=== PATIENT | female | born 1965 | race American Indian/Alaskan Native ===

== ENCOUNTER 2017-11-03 18:07 | Emergency (ER) | payer MEDICAID ==
[2017-11-03 18:24] VITALS: TEMP 98.6
--- NOTE | 2017-11-03 18:35 | C.PDOC ---
History Of Present Illness 52 yo female w/PMHx of asthma come in for evaluation of Right sided sharp, spasmodic headache developed since yesterday. Pt sts, "its sharp, last 3 sec, shot to my Right eye". Otherwise, pt denies continuos headache, visual changes, focal deficits, neck pain, CVP, SOB, dyspnea, diaphoresis, palpitation, abd. pain, N/V, denies weakness, sensory or vascular deficits to B/L UEs and lEs. AT present time, pt is asymptomatic. Time Seen by Provider: 11/03/17 18:27 Chief Complaint (Nursing): Headache History Per: Patient History/Exam Limitations: no limitations Onset/Duration Of Symptoms: Days (1) Current Symptoms Are (Timing): Still Present Severity: Moderate Quality: Sharp Past Medical History Reviewed: Historical Data, Nursing Documentation, Vital Signs Vital Signs: Last Vital Signs Temp 98.6 F 11/03/17 18:20 Pulse 65 11/03/17 18:20 Resp 18 11/03/17 18:20 BP 141/69 11/03/17 18:20 Pulse Ox 97 11/03/17 18:50 - Medical History PMH: Asthma Family History: States: No Known Family Hx - Social History Hx Alcohol Use: Yes Hx Substance Use: No - Immunization History Hx Tetanus Toxoid Vaccination: No Hx Influenza Vaccination: Yes Review Of Systems Constitutional: Negative for: Fever, Chills Eyes: Negative for: Vision Change, Conjunctivae Inflammation, Eyelid Inflammation Cardiovascular: Negative for: Chest Pain Respiratory: Negative for: Shortness of Breath Gastrointestinal: Negative for: Nausea, Vomiting Musculoskeletal: Negative for: Neck Pain Neurological: Positive for: Headache. Negative for: Weakness, Numbness, Altered Mental Status, Dizziness Physical Exam - Physical Exam Appears: Well, Non-toxic, No Acute Distress Skin: Normal Color, Warm, Dry, No Rash, No Ecchymosis Head: Atraumatic, Normacephalic Eye(s): bilateral: PERRL, EOMI Ear(s): Bilateral: Normal Nose: No Flaring, No Discharge Oral Mucosa: Moist, No Drooling Throat: No Drooling Neck: Normal ROM, Trachea Midline, Supple Cardiovascular: Rhythm Regular, No Murmur, No JVD, Other ((-) caorit bruits B/L) Respiratory: No Decreased Breath Sounds, No Accessory Muscle Use, No Stridor, No Wheezing Gastrointestinal/Abdominal: Soft, No Tenderness, No Distention, No Guarding Back: No Vertebral Tenderness Extremity: Normal ROM, No Pedal Edema, No Deformity Neurological/Psych: Oriented x3, Normal Speech, Normal Motor, Normal Sensation, Normal Reflexes ED Course And Treatment O2 Sat by Pulse Oximetry: 97 (RA) Pulse Ox Interpretation: Normal - CT Scan/US CT head w/o contrast Other Rad Studies (CT/US): Radiology Report Reviewed CT/US Interpretation: EXAM: CT Head Without Intravenous Contrast. CLINICAL HISTORY: 52 years old, female; Pain; Headache; Headache not specified; Additional. info: Right side pain. TECHNIQUE: Axial computed tomography images of the head/brain without intravenous contrast. All CT scans at this facility use at least one of these dose optimization techniques: automated. exposure control; mA and/or kV adjustment per patient size (includes targeted exams where dose is. matched to clinical indication); or iterative reconstruction. Coronal and sagittal reformatted images. were created and reviewed. COMPARISON: No relevant prior studies available. FINDINGS: Brain: Unremarkable. No hemorrhage. No significant white matter disease. No edema. Ventricles: Unremarkable. No ventriculomegaly. Bones/joints: Unremarkable. No acute fracture. Soft tissues: Unremarkable. Sinuses: Unremarkable as visualized. No acute sinusitis. Mastoid air cells: Unremarkable as visualized. No mastoid effusion. IMPRESSION: Normal head/brain CT. Thank you for allowing us to participate in the care of your patient. Dictated and Authenticated by: Nixon Briggs MD. 11/03/2017 8:07 PM Eastern Time ([place] & [place]) Progress Note: On re-evaluation, pt remained asymptomatic, while in ED. Afebrile, hemodynamicaly stable. Neuorlogicaly intact. CT head results review - unremarcable. Pt has clinical findings c/w Right sided headache, nos r/o neuralgia. Pt advised and ref. to f/u with PMD, Neuorlogy in 1-2 dyas for re- eavluation, Carotid Dopple, MRI of brain as need. return to Ed if any worsening or new changes. Disposition Counseled Patient/Family Regarding: Studies Performed, Diagnosis, Need For Followup, Rx Given - Disposition Referrals: Timmy Baptiste MD [Staff Provider] - Disposition: HOME/ ROUTINE Disposition Time: 20:09 Condition: STABLE Additional Instructions: Follow up with PMD, Neurology in 2-3 days for re-evaluation. Consider carotid Dopple US, MRI of brain if symptoms persist. return to Ed if any worsening or new changes. Instructions: Headache, Adult (DC) Forms: [facility] (Sinhala) - Clinical Impression Clinical Impression: Headache
[2017-11-03 20:28] VITALS: BP 138/81; PULSE 78; RESP 16; O2SAT 98
--- NOTE | 2017-11-04 11:25 | CT ---
Date of service: 11/03/2017 PROCEDURE: CT HEAD WITHOUT CONTRAST. HISTORY: Right side pain COMPARISON: None available. TECHNIQUE: Axial computed tomography images were obtained through the head/brain without intravenous contrast. Radiation dose: Total exam DLP = 97.02 mGy-cm. This CT exam was performed using one or more of the following dose reduction techniques: Automated exposure control, adjustment of the mA and/or kV according to patient size, and/or use of iterative reconstruction technique. FINDINGS: HEMORRHAGE: No intracranial hemorrhage. BRAIN: Normal peña-white matter differentiation and density are appreciated throughout the cerebrum and cerebellum with the brainstem appearing unremarkable as well. There is no mass effect. There is no suspicious extra-axial fluid collection and the midline brain anatomy appears diffusely unremarkable. VENTRICLES: Unremarkable. No hydrocephalus. CALVARIUM: Unremarkable. PARANASAL SINUSES: Unremarkable as visualized. No significant inflammatory changes. MASTOID AIR CELLS: Unremarkable as visualized. No inflammatory changes. OTHER FINDINGS: None. IMPRESSION: Unremarkable noncontrast CT of the Head.
== END 2017-11-03 20:27 | disposition home or self-care (01) ==
LOC: C.ER 18:07
DX: R51 Headache (principal)

== ENCOUNTER 2018-08-05 10:42 | Emergency (ER) | payer SELFPAY, MEDICAID | END 2018-08-05 13:51 | disposition home or self-care (01) | LOC: C.ER 10:42 ==